=== PATIENT | male | born 1955 | race Caucasian/White ===

== ENCOUNTER 2019-10-07 07:31 | Outpatient (CLI) | payer OTHER, SELFPAY ==
[2019-10-07 09:08] LABS: Folic Acid 16.7 ng/mL (2.76->20)
== END 2019-10-07 07:32 | disposition home or self-care (01) ==
PROVIDERS: PCP Internal Medicine; Visit Provider Internal Medicine
DX: D64.9 Anemia, unspecified (principal)
CPT/HCPCS: 36415; 82607; 82746

== ENCOUNTER 2019-11-20 07:55 | Outpatient (CLI) | payer OTHER, SELFPAY ==
[2019-11-20 09:03] LABS: Alanine Aminotransferase 25 U/L (4-50); Albumin Level 4.1 g/dL (3.5-5.1); Alkaline Phosphatase 54 U/L (38-126); Anion Gap 7 mmol/L (8-16); Aspartate Amino Transferase 32 U/L (17-59); Bilirubin,Total 0.7 mg/dL (0.2-1.3); Blood Urea Nitrogen 26 mg/dL (9-20); Calcium 9.2 mg/dL (8.4-10.2); Carbon Dioxide 27 mmol/L (22-30); Chloride 104 mmol/L (98-107); Cholesterol 161 mg/dL (0-200); Estimated Glomerular Filt Rate > 60; Glucose 101 mg/dL (75-110); HDL Direct 45 mg/dL; Potassium 3.9 mmol/L (3.4-5.0); Sodium 138 mmol/L (137-145); Triglycerides 223 mg/dL (<150)
[2019-11-20 09:14] LABS: LDL Cholesterol Direct 80 mg/dL
[2019-11-20 09:32] LABS: Prostate Specific Antigen 0.5 ng/mL (< OR = 4.0)
[2019-11-25 13:04] LABS: Lyme Disease Ab (IgM), Blot Negative (Negative); Lyme Disease Ab(IgG), Blot Negative (Negative)
== END 2019-11-20 07:56 | disposition home or self-care (01) ==
PROVIDERS: PCP Internal Medicine; Visit Provider Internal Medicine
DX: Z00.00 Encounter for general adult medical examination without abnormal findings (principal); Z12.5 Encounter for screening for malignant neoplasm of prostate
CPT/HCPCS: 36415; 80053; 80061; 84153; 86617; G0103

== ENCOUNTER 2020-04-26 13:09 | Outpatient (NON) | payer SELFPAY ==
[2020-04-26 18:03] LABS: Appearance Synovial Fluid Cloudy (Clear); Color Synovial Fluid Yellow (Colorless); Source Synovial Fluid Synovial fluid
[2020-04-26 18:04] LABS: Nucleated Cell Synovial Fluid 19652 /uL (0-200); RBC Synovial Fluid 22844 /uL (0-0)
[2020-04-26 18:06] LABS: Lymphocytes Synovial Fluid 2 %; Monocytes Synovial Fluid 12 %; Neutrophils Synovial Fluid 86 % (0-25)
[2020-04-26 18:10] LABS: Crystals Synovial Fluid None Seen (None Seen)
== END 2020-04-26 13:10 ==
PROVIDERS: PCP Internal Medicine; Visit Provider Orthopaedic Surgery
DX: M25.562 Pain in left knee (principal)
CPT/HCPCS: 87070; 87075; 87205; 89051; 89060

== ENCOUNTER 2021-03-30 12:54 | Emergency (ER) | payer OTHER, SELFPAY ==
[2021-03-30 13:51] VITALS: BP 122/89; PULSE 75; RESP 16; TEMP 37.2; O2SAT 95
[2021-03-30 19:15] VITALS: BP 142/100; PULSE 87; TEMP 36.2; O2SAT 95
[2021-03-30] MEDS: SODIUM CHLORIDE 0.9% IV 1,000 ML 999 ML IV CONT ×2 (22:26→23:12)
[2021-03-30 22:33] LABS: Basophils Absolute Auto 0.1 K/mm3 (0.0-0.1); Basophils Percent Auto 0.4 % (0.2-1.2); Eosinophils Absolute Auto 0.3 K/mm3 (0-0.3); Eosinophils Percent Auto 2.1 % (0-4.4); Hematocrit 48.7 % (42.0-52.0); Hemoglobin 16.3 g/dL (14.0-18.0); Immature Granulocyte Absolute 0.08 K/mm3 (0.00-0.031); Immature Granulocyte Percent A 0.7 % (0-0.5); Lymphocytes Absolute Auto 4.41 K/mm3 (0.9-3.2); Lymphocytes Percent Auto 37.6 % (18.3-44.2); Mean Corpuscular HGB Conc 33.5 g/dl (32-36); Mean Corpuscular Hemoglobin 33.1 pg (26-34); Mean Corpuscular Volume 98.8 fl (80-100); Mean Platelet Volume 9.7 fl (7.4-10.4); Monocytes Absolute Auto 1.7 K/mm3 (0.1-0.6); Monocytes Percent Auto 14.3 % (2.6-8.5); Neutrophils Absolute Auto 5.3 K/mm3 (1.3-6.7); Neutrophils Percent Auto 44.9 % (45.5-73.1); Platelet Count Result 263 k/mm3 (150-375); Red Blood Count 4.93 M/mm3 (4.6-6.20); Red Cell Distribution Width 13.9 % (11.5-14.5); White Blood Count 11.7 K/mm3 (4.5-10.0)
[2021-03-30 22:49] LABS: Alanine Aminotransferase 34 U/L (4-50); Albumin Level 4.4 g/dL (3.5-5.1); Alkaline Phosphatase 58 U/L (38-126); Anion Gap 6 mmol/L (8-16); Aspartate Amino Transferase 30 U/L (17-59); Bilirubin,Total 0.9 mg/dL (0.2-1.3); Blood Urea Nitrogen 25 mg/dL (9-20); Calcium 9.5 mg/dL (8.4-10.2); Carbon Dioxide 29 mmol/L (22-30); Chloride 106 mmol/L (98-107); Estimated CRCL calculation 58 ml/min; Estimated Glomerular Filt Rate > 60; Glucose 101 mg/dL (65-110); Lipase 122 U/L (23-300); Potassium 3.6 mmol/L (3.4-5.0); Sodium 141 mmol/L (137-145)
--- NOTE | 2021-03-30 23:06 | PC.NURSE ---
Pt unable to void, states my stomach's rumbling believes it's from the IV fluids.
[2021-03-31 00:29] LABS: Add Urine Microscopic? YES; Appearance Urine Clear (Clear); Bilirubin Urine Negative (Negative); Blood Urine Negative (Negative); Color Urine Yellow (Yellow); Glucose Urine UA Negative (Negative); Ketones Urine 1+ mg/dL (Negative); Leukocyte Esterase Ur Negative LEU/UL (Negative); Mucus Urine Rare /lpf; Nitrate Urine Negative (Negative); Protein Urine Negative (Negative); RBC Urine 0-2 /hpf (0-2); Specific Grav Ur 1.021 (1.001-1.035); Urobilinogen Urine Negative mg/dL (<2.0); WBC Urine 0-3 /hpf
--- NOTE | 2021-03-31 00:32 | ED.NAVMDI ---
HPI - Nausea/Vomiting/Diarrhea General Chief complaint: Nausea/Vomiting/Diarrhea Stated complaint: vomiting/weight loss Time Seen by Provider: 03/30/21 22:03 Source: patient Mode of arrival: ambulatory Limitations: no limitations History of Present Illness HPI Narrative: 65-year-old with a history of hypertension here with complaints of nausea, vomiting and diarrhea for last 5 days. Patient states that he has lost about 9 pounds in the last 4 to 5 days. He denies any fever. No history of abdominal pain or blood in the stool. 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 MD elicited complaint: nausea, vomiting and diarrhea Onset (ago): day(s) (4) Description of vomiting: watery Description of diarrhea: watery Associated nausea: Yes Associated abdominal pain: No Location of pain: none Exacerbating factors: eating Relieving factors: none Related Data Home Medications Medication Instructions Recorded Confirmed allopurinol 03/30/21 amlodipine 03/30/21 carvedilol 03/30/21 clonidine HCl 03/30/21 escitalopram oxalate mg 03/30/21 Allergies Allergy/AdvReac Type Severity Reaction Status Date / Time indomethacin Allergy Mild Rash Verified 03/30/21 22:16 Sulfa (Sulfonamide Allergy Unknown Rash Verified 03/30/21 22:16 Antibiotics) Review of Systems Review of Systems: All systems reviewed & are unremarkable except as noted in HPI and below Constitutional: Constitutional: Reports no additional constitutional complaints Eyes: Eyes: Reports no additional eye complaints ENT: Reports system reviewed and no additional complaints, except as documented Cardiovascular: Cardiovascular: Reports no additional cardiovascular complaints Respiratory: Respiratory: Reports no additional respiratory complaints Gastrointestinal: Gastrointestinal: Reports no additional gastrointestinal complaints Musculoskeletal: Musculoskeletal: Reports no additional musculoskeletal complaints Integumentary/Breasts: Skin/Breast: Reports system reviewed and no additional complaints, except as docu Neurologic: Reports system reviewed and no additional complaints, except as documented Endocrine: Endocrine: Reports no additional endocrine complaints Exam Narrative: GENERAL: Well-appearing, well-nourished, and in no acute distress. HEAD: Normocephalic, atraumatic. EYES: PERRLA and EOMI. NECK: Supple. CHEST: Clear to auscultation. No respiratory distress. HEART: Regular rate and rhythm. No murmur heard. Normal peripheral pulses. ABDOMEN: Soft, nontender, nondistended, normal active bowel sounds. EXTREMITIES: Normal range of motion. No edema. SKIN: Warm, dry, no rash. NEURO: No focal deficits. Alert and oriented x3. PSYCH: Normal mood and affect. Course Course Emergency Course: Patient was given 2 L of IV fluids. He is feeling much better informed him about his lab work. Advised him to drink plenty of fluids as tolerated. Vital Signs Vital signs: Vital Signs Temperature 37.2 C 03/30/21 13:51 Pulse Rate 75 03/30/21 13:51 Respiratory Rate 16 03/30/21 13:51 Blood Pressure 122/89 03/30/21 13:51 Pulse Oximetry 95 03/30/21 13:51 Temperature 36.2 C L 03/30/21 19:15 Pulse Rate 87 03/30/21 19:15 Respiratory Rate 16 03/30/21 13:51 Blood Pressure 142/100 H 03/30/21 19:15 Pulse Oximetry 95 03/30/21 19:15 MDM - Nausea/Vomiting/Diarrhea Lab Data Result diagrams: 03/30/21 22:25 03/30/21 22:25 Labs: Lab Results 03/30/21 03/30/21 03/31/21 Range/Units 22:25 22:25 00:00 WBC 11.7 H (4.5-10.0) K/mm3 RBC 4.93 (4.6-6.20) M/mm3 Hgb 16.3 (14.0-18.0) g/dL Hct 48.7 (42.0-52.0) % MCV 98.8 (80-100) fl MCH 33.1 (26-34) pg MCHC 33.5 (32-36) g/dl RDW 13.9 (11.5-14.5) % Plt Count 263 (150-375) k/mm3 MPV 9.7 (7.4-10.4) fl Immature Gran % (Auto) 0.7 H (0-0.5) % Neut % (Auto) 44.9 L (45.5-
== END 2021-03-31 01:12 | disposition home or self-care (01) ==
PROVIDERS: Emergency Provider Family Medicine; PCP Internal Medicine
DX: K52.9 Noninfective gastroenteritis and colitis, unspecified (principal)
CPT/HCPCS: 36415; 80053; 81001; 83690; 85025; 96360; 96361; 99283; J7030

== ENCOUNTER 2021-04-06 16:31 | Outpatient (NON) | payer OTHER, SELFPAY ==
[2021-04-06 19:34] LABS: Source Synovial Fluid Synovial fluid
[2021-04-06 19:35] LABS: Appearance Synovial Fluid Hazy (Clear); Color Synovial Fluid Yellow (Colorless)
[2021-04-06 19:41] LABS: Nucleated Cell Synovial Fluid 1726 /uL (0-200); RBC Synovial Fluid 2195 /uL (0-0)
[2021-04-06 19:42] LABS: Lymphocytes Synovial Fluid 3 %; Neutrophils Synovial Fluid 83 % (0-25)
[2021-04-06 19:43] LABS: Macrophages Synovial Fluid 12 %; Monocytes Synovial Fluid 2 %
[2021-04-06 20:21] LABS: Crystals Synovial Fluid None Seen (None Seen)
== END 2021-04-06 16:32 | disposition home or self-care (01) ==
LOC: HOME HLTH 16:35
PROVIDERS: PCP Internal Medicine; Visit Provider Physician Assistant Surgical
DX: M25.462 Effusion, left knee (principal); M25.562 Pain in left knee
CPT/HCPCS: 87070; 87075; 87205; 89051; 89060

== ENCOUNTER → 2021-04-29 07:47 | Outpatient (CLI) | payer OTHER, SELFPAY ==
--- NOTE | ~2021-04-29 | MR_ITS ---
EXAMINATION: MR knee LT wo con DATE: 04/29/2021 08:30 INDICATION: Severe left knee pain TECHNIQUE: Magnetic resonance imaging (MRI) of the left knee was performed without intravenous contra st. Sequences included coronal PD-weighted FSE, coronal PD-weighted FS FSE, sagittal T2-weighted FSE , sagittal PD-weighted FS FSE and axial PD weighted fat saturated FSE. COMPARISON: None. FINDINGS: Medial compartment: The body and posterior horn of the medial meniscus are small and there is scarring along the medial a nd lateral aspects of Hoffa's fat pad suggesting prior arthroscopy of likely change of prior dorsal m eniscectomy. There is subtle linear increased signal contacting the inferior articular surface and th e peripheral third of the meniscus at the posterior body and posterior horn equivocal for residual/re current tear versus scarring related to prior repaired tear in the appropriate clinical setting. Shal low chondral surface regularity along the anterior to central weightbearing medial femoral condyle. Lateral compartment: Lateral meniscus is normal. Deep chondral fissuring along the posterior aspect of the lateral tibial plateau with tiny focus of subarticular edema like signal change. Patellofemoral compartment: Partial-thickness chondral ulceration and some deeper fissuring along the lateral trochlea and at the inferior aspect of the trochlear groove without degenerative subchondral changes. Patellar cartilage is normal. Ligaments and tendons: Anterior and posterior cruciate ligaments are normal. Partial tear at the proximal medial collateral ligament without significant surrounding edema suggesting this is either subacute or chronic. The fib ular collateral ligament is normal. Severe tendinopathy without definitive tear at the femoral insert ion of the popliteal tendon. Enthesophyte at the patellar insertion of the distal quadriceps tendon w ith mild to moderate associated distal quadriceps tendinopathy/enthesopathy. Patellar tendon is norm al. The visualized medial and lateral hamstring tendons as well as the iliotibial band are normal. Fluid: Physiologic amount of fluid in the joint space. 5 mm diameter loose osteochondral body in the posteri or recess along the posterior margin of the distal posterior cruciate ligament. Osseous/other: Mild cystlike changes are seen along the margins of the anterior cruciate ligament footplates of both the distal femur and proximal tibia. Marrow signal is otherwise normal. No fracture or pathologic ma rrow replacing process. IMPRESSION: 1. Prior partial medial meniscectomy with small body and posterior horn where there is increased sign al contacting the articular surfaces of less than fluid intensity which remains equivocal for residua l/recurrent longitudinal vertical tear versus scarring related to prior tear. Correlate with prior millan rgical history or if this would affect clinical management could consider MR arthrography for further evaluation. 2. Mild tricompartmental osteoarthritis with moderate grade chondromalacia in the medial and patellof emoral compartments and small region of moderate to high-grade chondral malacia along the lateral tib ial plateau. 3. Likely subacute or chronic partial tear/moderate grade sprain at the proximal medial collateral li gament. 4. Severe popliteal tendinopathy without definitive tear. 5. Mild to moderate distal quadriceps enthesopathy. Reviewed, dictated and finalized at location A. RER HELPER IMPRESSION: 1. Prior partial medial meniscectomy with small body and posterior horn where t here is increased signal contacting the articular surfaces of less than fluid i ntensity which remains equivocal for residual/recurrent longitudinal vertical t ear versus scarring related to p
== END ==
PROVIDERS: Visit Provider Orthopaedic Surgery
DX: M25.562 Pain in left knee (principal); Z98.890 Other specified postprocedural states; M17.12 Unilateral primary osteoarthritis, left knee; M94.262 Chondromalacia, left knee; S83.8X2A Sprain of other specified parts of left knee, initial encounter
CPT/HCPCS: 73721

== ENCOUNTER 2022-08-13 11:38 | Emergency (ER) | payer OTHER, SELFPAY ==
--- NOTE | ~2022-08-13 | CT_ITS ---
EXAMINATION: CT cervical spine wo con DATE: 08/13/2022 12:24 INDICATION: Head injury TECHNIQUE: Computed tomography (CT) of the cervical spine was performed without intravenous contrast. The dose-length product (DLP) was 397.69 mGy-cm. Automated exposure control and iterative reconstruc tion technique were employed. COMPARISON: None FINDINGS: There are 2 mm of anterolisthesis of C4 on C5. The vertebral body heights are normal. There is mild loss of intervertebral disc space height at C5-6. The odontoid process is intact. Small dege nerative osteophytes project from the anterior endplates of multiple vertebral bodies. There is multi level mild/moderate facet and uncovertebral joint osteoarthritis. The prevertebral soft tissues are n ormal. IMPRESSION: 1. Moderate cervical spondylosis without acute findings. Reviewed, dictated and finalized at location A.
--- NOTE | ~2022-08-13 | CT_ITS ---
EXAMINATION: CT brain wo con INDICATION: Head injury COMPARISON: None TECHNIQUE: Standard unenhanced head CT. The dose-length product (DLP) was 605.33 mGy-cm. The mA was a djusted according to patient size. Iterative reconstruction technique was employed. FINDINGS: There is a left parietal scalp hematoma. There is no intracranial hemorrhage, acute infarct ion, or abnormal mass lesion. The ventricles are normal. There is no abnormal mass effect or midline shift. The garcia-white matter differentiation is normal. The basal cisterns are patent. The orbits are normal. There are small fluid layers in the maxillary sinuses. Intracranial calcified cerebral ather osclerosis is noted. IMPRESSION: 1. Left parietal scalp hematoma without acute intracranial abnormality. Reviewed, dictated and finalized at location A.
[2022-08-13 11:39] VITALS: BP 161/84; PULSE 80; RESP 17; TEMP 36.7; O2SAT 96
--- NOTE | 2022-08-13 11:52 | PC.NURSE ---
pt presents with upper back, neck and head pain post fall. c-collar
--- NOTE | 2022-08-13 12:14 | ED.FALL ---
HPI - Fall General Chief Complaint: Fall Stated Complaint: fall, hit head Time Seen by Provider: 08/13/22 11:57 History of Present Illness HPI Narrative: 66-year-old male presenting to the emergency department for evaluation after having a ground-level fall. Patient reports he was power washing near his pool when he slipped on the ground falling backwards striking his back and striking the back of his head. Patient denied having loss of consciousness but states he did see stars. Patient was able to get up take shower and then presented to the emergency department. Patient denies any current change in vision. Patient denies any associated numbness or weakness. Patient states he does have some upper neck pain and did have some intermittent tingling but denies any current neurologic symptoms. Patient denies any other pain or injury. Related Data Home Medications Medication Instructions Recorded Confirmed allopurinol 100 mg tablet 03/30/21 amlodipine 5 mg tablet 03/30/21 carvedilol 12.5 mg tablet 03/30/21 clonidine HCl 0.1 mg tablet 03/30/21 escitalopram oxalate 20 mg tablet mg 03/30/21 Allergies Allergy/AdvReac Type Severity Reaction Status Date / Time indomethacin Allergy Mild Rash Verified 08/13/22 12:04 Sulfa (Sulfonamide Allergy Unknown Rash Verified 08/13/22 12:04 Antibiotics) Review of Systems Review of Systems: All systems reviewed & are unremarkable except as noted in HPI and below Exam Narrative: APPEARANCE: Well appearing, no pain, no distress, well-nourished. HEAD: normocephalic, posterior scalp hematoma. EYES: PERRLA/EOMI, conjunctivae clear. NOSE: Normal no drainage EARS:TMS clear with good light reflex. NECK: Supple. No adenopathy, no masses. RESPIRATORY: Airway patent, respirations nonlabored. Clear to auscultation bilaterally, no rales, rhonchi, wheezing. CARDIOVASCULAR: Regular rate and rhythm without murmurs rubs or gallops. ABDOMINAL: Soft, nontender, nondistended, normal bowel sounds MUSCULOSKELETAL: Moves all extremities. Strength/ROM intact, No edema, No calf tenderness. NEURO: Alert. Cranial nerves II through XII intact. Grossly intact. No drift, no ataxia. Normal sensation SKIN: Warm, dry. Normal Color Course Course Emergency Course: 66-year-old male presented ED for evaluation after a head injury and neck pain. Patient is still in a c-collar. Patient was updated on the plan for imaging of head and neck. Patient declined any medications for pain control at this time. Head and neck CT were negative for any acute intracranial or cervical abnormalities. Patient and family were updated on results of the work-up. Patient and family are comfortable with plan for discharge and close follow-up. All questions and concerns were addressed. Vital Signs Vital signs: Vital Signs Temperature 98.0 F 08/13/22 11:39 Pulse Rate 80 08/13/22 11:39 Respiratory Rate 17 08/13/22 11:39 Blood Pressure 161/84 H 08/13/22 11:39 Pulse Oximetry 96 08/13/22 11:39 Oxygen Delivery Room Air 08/13/22 11:39 Temperature 98.0 F 08/13/22 11:39 Pulse Rate 80 08/13/22 11:39 Respiratory Rate 17 08/13/22 11:39 Blood Pressure 161/84 H 08/13/22 11:39 Pulse Oximetry 96 08/13/22 11:39 Oxygen Delivery Room Air 08/13/22 11:39 MDM - Fall Differential Diagnosis Differential diagnosis: Likely other Imaging Data Radiologist's impression: Impressions Head CT 08/13/22 12:28 IMPRESSION: 1. Left parietal scalp hematoma without acute intracranial abnormality. Cervical Spine CT 08/13/22 12:45 IMPRESSION: 1. Moderate cervical spondylosis without acute findings. Discharge Plan Discharge Clinical Impression: Concussion with loss of consciousness, Neck pain Patient Disposition: Home, Self-Care Condition: Stable Instructions: Antibiotic Form, Concussion (ED), Head Injury (ED), Acute Neck Pain (ED) Additional Instructions: Fo
== END 2022-08-13 13:18 | disposition home or self-care (01) ==
PROVIDERS: Emergency Provider Emergency Medicine; PCP Internal Medicine
DX: S06.0X9A Concussion with loss of consciousness of unspecified duration, initial encounter (principal); S19.9XXA Unspecified injury of neck, initial encounter; M47.812 Spondylosis without myelopathy or radiculopathy, cervical region; W01.0XXA Fall on same level from slipping, tripping and stumbling without subsequent striking against object, initial encounter
CPT/HCPCS: 70450; 72125; 99284; L0140

== ENCOUNTER 2022-12-05 15:10 | Outpatient (CLI) | payer OTHER, SELFPAY ==
--- NOTE | ~2022-12-05 | CT_ITS ---
CT of the Abdomen and Pelvis: Indication: Abdominal pain Technique: 2.5 mm axial scans were obtained through the abdomen and pelvis following intravenous adm inistration of 100 cc of Omnipaque 350. Dose reduction technique was used on this scan by utilizing a utomated exposure control and iterative reconstruction technique. The dose-length product (DLP) was 9 63.21 mGy-cm. COMPARISON: 04/25/2016 Findings: Scans through the lung bases are unremarkable. There is fatty infiltration of liver. Patient is status post cholecystectomy and splenectomy. Small b ilateral nonobstructing renal stones are present, largest stone measuring 4 mm in the right kidney. T he pancreas and adrenal glands are within normal limits. There are atherosclerotic calcifications of the aorta. No lymphadenopathy. No bowel obstruction or bowel wall thickening. Duodenal diverticulum noted. There is no evidence to s uggest acute appendicitis. Images through the pelvis were performed. Urinary bladder unremarkable. Prostate gland and seminal ve sicles are unremarkable. No ascites. Impression: Bilateral nonobstructing nephrolithiasis, as detailed above. Diffuse fatty infiltration of liver. Duodenal diverticulum. Reviewed, dictated and finalized at location M. Impression: Bilateral nonobstructing nephrolithiasis, as detailed above. Diffuse fatty infiltration of liver. Duodenal diverticulum.
[2022-12-05 15:31] LABS: Estimated Glomerular Filt Rate > 60
== END 2022-12-05 15:11 | disposition home or self-care (01) ==
PROVIDERS: PCP Internal Medicine; Visit Provider Internal Medicine
DX: N20.0 Calculus of kidney (principal); K57.10 Diverticulosis of small intestine without perforation or abscess without bleeding; K76.0 Fatty (change of) liver, not elsewhere classified
CPT/HCPCS: 74177; Q9967

== ENCOUNTER 2023-01-11 07:00 | Outpatient (NON) | payer OTHER, SELFPAY | END 2023-01-11 07:01 | disposition home or self-care (01) | PROVIDERS: PCP Internal Medicine; Visit Provider Internal Medicine | DX: R11.2 Nausea with vomiting, unspecified (principal) | CPT/HCPCS: 88305 ==

== ENCOUNTER 2023-01-11 07:06 | Day surgery (SDC) | payer OTHER, SELFPAY ==
--- NOTE | 2023-01-10 14:33 | PM.HPGS ---
History of Present Illness History of Present Illness Consent: Risks, benefits, and alternatives have been discussed and questions answered. Patient agrees to proceed with procedure. Chief complaint: Nausea,Diarrhea,Gerd,Hematemesis,Diverticulosis Narrative: Lele Wooten is a 67 year old male who has had problems with very loose bowel movements times fecal incontinence. He also has been having episodes of nausea and dry heaves. this normally occurs when he has a bowel movement He is on medicine for acid reflux but does symptoms are worse. He has had no weight loss. there is no family history of inflammatory bowel disease or celiac disease. When he took Imodium, even 1/2 tablet, itseemed to make him constipated Review of Systems Review of Systems: All systems reviewed & are unremarkable except as noted in HPI and below PMFSH Past Medical History Medical History Change in bowel habits Diarrhea Duodenal diverticulum Fecal urgency GERD (gastroesophageal reflux disease) Hematemesis Hypertension Nausea Obesity Surgical History Surgical History Hx laparoscopic cholecystectomy Hx of splenectomy Social History Social History Smoking status: Never smoker Alcohol intake: current Drinks per week: 3 Substance use type: does not use Living arrangements: with family Spiritual care concerns: No Meds Home Medications and Allergies Home Medications Medication Instructions Recorded Confirmed Type amlodipine 5 mg tablet 5 mg PO DAILY 03/30/21 01/11/23 History clonidine HCl 0.1 mg tablet 0.1 mg PO USEASDIRECTD 03/30/21 01/11/23 History escitalopram oxalate 20 mg tablet 20 mg PO USEASDIRECTD 03/30/21 01/11/23 History allopurinol 100 mg tablet 300 mg PO DAILY 12/21/22 01/11/23 History aspirin 81 mg tablet,delayed 81 mg PO DAILY 12/21/22 01/11/23 History release (Adult Aspirin Regimen) carvedilol 12.5 mg tablet 12.5 mg PO ONCE 12/21/22 01/11/23 History carvedilol 25 mg tablet 25 mg PO ONCE 12/21/22 01/11/23 History celecoxib 200 mg capsule 200 mg PO BID 12/21/22 01/11/23 History omeprazole 40 mg capsule,delayed 40 mg PO DAILY #30 caps 12/21/22 01/11/23 Rx release cholecalciferol (vitamin D3) 50 50 mcg PO DAILY 12/22/22 01/11/23 History mcg (2,000 unit) tablet (Vitamin D3) Allergies Allergy/AdvReac Type Severity Reaction Status Date / Time indomethacin Allergy Mild Rash Verified 01/11/23 07:57 Sulfa (Sulfonamide Allergy Unknown Rash Verified 01/11/23 07:57 Antibiotics) Exam Const: General: alert Orientation/consciousness: patient oriented x3 Resp: Auscultation: clear to auscultation bilaterally Cardio: Rhythm: regular rhythm GI: GI Palp: Yes Soft to palpation and No Tenderness to palpation present (GI) Neuro: General: patient oriented x3 Assessment and Plan Assessment and plan (1) Nausea and vomiting: Code(s): R11.2 - Nausea with vomiting, unspecified Status: Acute Assessment and Plan: EGD with possible biopsy or dilatation or cautery. (2) Change in bowel habits: Code(s): R19.4 - Change in bowel habit Status: Acute Assessment and Plan: Colonoscopy with possible biopsy or polypectomy or cautery or injection of substances.
[2023-01-11 08:16] VITALS: BP 140/83; PULSE 68; RESP 18; TEMP 36.8; O2SAT 97
[2023-01-11] MEDS: LACTATED RINGERS 1,000 ML 150 ML IV CONT (08:23)
--- NOTE | 2023-01-11 08:56 | WPDANESEPPF ---
Anes - Initial Pre Proc Eval Procedure: Operation Date: 01/11/23 09:00 Proposed Procedures p Esophagogastroduodenoscopy - Ross Gray MD s Colonoscopy - Ross Gray MD Date/Time: 01/11/23 08:56 Surgeon: Ross Gray MD Pre Op Diagnosis: Nausea,Diarrhea,Gerd,Hematemesis,Diverticulosis Patient Data Age: 67 Gender: M Height: 1.73 m Weight: 91.8 kg Last Vital Signs Temp 36.8 C 01/11/23 08:16 Pulse 68 01/11/23 08:16 Resp 18 01/11/23 08:16 BP 140/83 01/11/23 08:16 Pulse Ox 97 01/11/23 08:16 O2 Del Method Room Air 01/11/23 08:16 Allergies Allergy/AdvReac Type Severity Reaction Status Date / Time indomethacin Allergy Mild Rash Verified 01/11/23 07:57 Sulfa (Sulfonamide Allergy Unknown Rash Verified 01/11/23 07:57 Antibiotics) Home Medications Medication Instructions Recorded Confirmed Type amlodipine 5 mg tablet 5 mg PO DAILY 03/30/21 01/11/23 History clonidine HCl 0.1 mg tablet 0.1 mg PO USEASDIRECTD 03/30/21 01/11/23 History escitalopram oxalate 20 mg tablet 20 mg PO USEASDIRECTD 03/30/21 01/11/23 History allopurinol 100 mg tablet 300 mg PO DAILY 12/21/22 01/11/23 History aspirin 81 mg tablet,delayed 81 mg PO DAILY 12/21/22 01/11/23 History release (Adult Aspirin Regimen) carvedilol 12.5 mg tablet 12.5 mg PO ONCE 12/21/22 01/11/23 History carvedilol 25 mg tablet 25 mg PO ONCE 12/21/22 01/11/23 History celecoxib 200 mg capsule 200 mg PO BID 12/21/22 01/11/23 History omeprazole 40 mg capsule,delayed 40 mg PO DAILY #30 caps 12/21/22 01/11/23 Rx release cholecalciferol (vitamin D3) 50 50 mcg PO DAILY 12/22/22 01/11/23 History mcg (2,000 unit) tablet (Vitamin D3) Patient hx anesthesia problems: none Family hx anesthesia problems: other (mother slow to awaken confused) Results Review: All pre-operative results and documents have been reviewed as part of the pre-operative evaluation. [facility] Past Medical History Medical History Change in bowel habits Diarrhea Duodenal diverticulum Fecal urgency GERD (gastroesophageal reflux disease) Hematemesis Hypertension Nausea Obesity Surgical History Surgical History Hx laparoscopic cholecystectomy Hx of splenectomy Social History Social History Smoking status: Never smoker Alcohol intake: current Drinks per week: 3 Substance use type: does not use Living arrangements: with family Spiritual care concerns: No Anes - Eval Final PreProcedure Day of Procedure 01/11/23 08:56 Patient weight: overweight Heart: regular rate and rhythm Lungs: clear to auscultation Airway: Mallampati scale class II Neurological: alert and oriented Last oral intake: >/= 8 hours ASA classification: III Emergent: no Anesthetic plan: proceed Anesthesia type and monitoring: general GIVS and standard monitoring Results Review: All pre-operative results and documents have been reviewed as part of the pre-operative evaluation. Informed Consent: The patient's anesthetic plan and its attendant risks and benefits were discussed with the patient/family/POA. Questions were solicited and answers provided to the satisfaction of the patient/family/POA.
[2023-01-11 09:34] VITALS: BP 109/68; PULSE 66; RESP 16; O2SAT 97
[2023-01-11 09:44] VITALS: BP 99/67; PULSE 59; RESP 16; O2SAT 97
[2023-01-11 09:54] VITALS: BP 106/73; PULSE 60; RESP 16; O2SAT 97
--- NOTE | 2023-01-11 09:56 | WPDANESPN ---
Anes - Prog Note Post-Op Date/Time: 01/11/23 09:56 Cardiovascular status: normal Respiratory status: normal Airway patency: baseline Mental status: baseline Post-Op hydration status: normal Vital Signs: Last Vital Signs Temp 36.8 C 01/11/23 08:16 Pulse 60 01/11/23 09:54 Resp 16 01/11/23 09:54 BP 106/73 01/11/23 09:54 Pulse Ox 97 01/11/23 09:54 O2 Del Method Room Air 01/11/23 09:54 Pain Score (VAS): 0 I/O: Intake & Output 01/10/23 01/11/23 01/11/23 23:59 07:59 15:59 Intake Total 500 Balance 500 Patient Feedback: Patient satisfied with anesthetic care.
[2023-01-11 10:00] VITALS: BP 114/75; PULSE 57; RESP 16; O2SAT 97
== END 2023-01-11 10:10 | disposition home or self-care (01) ==
PROVIDERS: PCP Internal Medicine; Visit Provider Internal Medicine Gastroenterology
PROC: 0DJ08ZZ Inspection of Upper Intestinal Tract, Via Natural or Artificial Opening Endoscopic (ICD-10-PCS; CPT 43235; principal; 2023-01-11 09:00)
PROC: 0DJD8ZZ Inspection of Lower Intestinal Tract, Via Natural or Artificial Opening Endoscopic (ICD-10-PCS; CPT 45378; 2023-01-11 09:00)
DX: K59.1 Functional diarrhea (principal)
CPT/HCPCS: 45380

== ENCOUNTER 2024-04-01 07:42 | Outpatient (CLI) | payer OTHER, SELFPAY ==
--- NOTE | ~2024-04-01 | MR_ITS ---
MRI of the right hand CLINICAL HISTORY: Fifth digit mass/swelling TECHNIQUE: Axial T1, T1 fat-sat, and T2 fat-sat images, coronal T1-weighted, STIR, and T2 fat-sat leonard ges, and sagittal T1-weighted and STIR images were acquired. Following intravenous administration of 18 cc MultiHance gadolinium, T1-weighted fat-sat imaging was performed in the axial, coronal, and sag ittal planes. FINDINGS: Bone marrow signals are unremarkable. No fracture or bone marrow edema. No evidence for ost eitis. Joint spaces are intact. No joint effusion evident. In the fifth digit, at the distal aspect, there is a 1.9 x 1.6 x 1.4 cm cystic mass with a few summer internship al septations, predominantly along the palmar aspect of the distal phalanx. Lesion is essentially non enhancing, aside from possible minimal enhancement in the septations. No other soft tissue reality seen. Flexor and extensor tendons are unremarkable. Musculature unremarkable. IMPRESSION: 1.9 x 1.6 x 1.4 cm cystic mass with a few thin septations at the distal phalanx region of the fifth d igit, as detailed above. This could reflect ganglion cyst or other benign cystic lesion. Reviewed, dictated and finalized at [facility]. [employer] MANAGEMENT IMPRESSION: 1.9 x 1.6 x 1.4 cm cystic mass with a few thin septations at the distal phalanx region of the fifth digit, as detailed above. This could reflect ganglion cyst or other benign cystic lesion.
== END 2024-04-01 07:43 | disposition home or self-care (01) ==
PROVIDERS: PCP Internal Medicine; Visit Provider Orthopaedic Surgery
DX: M85.68 Other cyst of bone, other site (principal)
CPT/HCPCS: 73220; A9577